=== PATIENT | female | born 1985 | race Caucasian/White ===

== ENCOUNTER → 2023-10-14 10:13 | Outpatient (BNVA) | payer MEDICAID, SELFPAY | PROVIDERS: PCP Family Medicine; Referring Provider Family Medicine; Visit Provider Specialist | DX: G43.711 Chronic migraine without aura, intractable, with status migrainosus (principal); H54.62 Unqualified visual loss, left eye, normal vision right eye | CPT/HCPCS: 99205 ==

== ENCOUNTER 2023-11-18 11:52 | Outpatient (CLI) | payer MEDICAID, SELFPAY ==
--- NOTE | 2023-11-18 12:15 | MR_ITS ---
WS: [id number] MRI HEAD WITHOUT CONTRAST TECHNIQUE: Sagittal T1, T2 axial, T2 axial FLAIR, axial and coronal T1 images, axial susceptibility w eighted imaging, axial diffusion weighted images, and coronal T2 images were obtained. CLINICAL INFORMATION: G43.711 - Chronic migraine without aura, intractable, wit... COMPARISON: None. FINDINGS: No evidence of restricted diffusion to suggest acute ischemia. Ventricular system and basilar cistern s are patent. Cerebellar tonsils approximately 6.5 mm below the foramen magnum compatible with Chiari I malformation. No hydrocephalus. Normal fourth ventricle. Mild crowding at the foramen magnum. No hemosiderin on the susceptibility weighted images. Normal optic chiasm and pituitary infundibulum. Temporal lobes and hippocampal formations are normal in appearance. Normal posterior fossa. Normal vascular flow voids at the skull base. No extra-axial fluid collection s. No evidence of mass or mass effect. Paranasal sinuses are well aerated. Mild mucosal thickening in the paranasal sinuses. Normal posterior nasopharynx. Mastoid air cells are well aerated. IMPRESSION: 1. Chiari I malformation with cerebellar tonsils approximately 6 mm below the foramen magnum. Mild c rowding of the foramen magnum. Normal fourth ventricle. 2. Recommend MRI cervical spine to exclude syrinx considering Chiari I malformation. 3. No suspicious intracranial signal abnormalities. 4. No hemosiderin on the susceptibly weighted images. 5. No other suspicious findings.
== END 2023-11-18 11:53 | disposition home or self-care (01) ==
LOC: RAD 11:53
PROVIDERS: PCP Family Medicine; Visit Provider Specialist
DX: G43.711 Chronic migraine without aura, intractable, with status migrainosus (principal)
CPT/HCPCS: 70551; 99213

== ENCOUNTER → 2024-05-22 08:42 | Outpatient (BNVA) | payer MEDICAID, SELFPAY | PROVIDERS: PCP Family Medicine; Visit Provider Specialist | DX: G43.711 Chronic migraine without aura, intractable, with status migrainosus | CPT/HCPCS: 99213 ==